=== PATIENT | male | born 1965 | race Caucasian/White ===

== ENCOUNTER 2017-09-14 17:00 | Emergency (ER) | payer SELFPAY ==
[2017-09-14 17:10] VITALS: BP 170/100
--- NOTE | 2017-09-14 17:27 | ER Document Report ---
ED Medical Screen (RME) - General Chief Complaint: Chest Congestion Stated Complaint: CONGESTION Time Seen by Provider: 09/14/17 17:15 Notes: This 52-year-old male patient with past history of ADHD on documented on prior visits comes emergency room with a long detailed history. He reports he has had chicken mite bites to his skin for over 2 years due to a neighbor that raises chickens. He tried a friend's scabies medication, and several treatments recommended over the Internet none of which worked. He reports buying a microscope over the Internet to look at these mites to identify them. 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 He states that he has found that most people have this problem become victims of conspiracies, 306's, and frequently get put on antipsychotic medications. 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 I have greeted and performed a rapid initial assessment of this patient. A comprehensive ED assessment and evaluation of the patient, analysis of test results and completion of the medical decision making process will be conducted by additional ED providers. TRAVEL OUTSIDE OF THE [place] IN LAST 30 DAYS: No - Related Data Allergies/Adverse Reactions: erythromycin base [Erythromycin Base] Allergy (Verified 09/14/17 17:02) VOMITING Past Medical History - Past Medical History Cardiac Medical History: Reports: Hx Hypertension Psychiatric Medical History: Reports: Hx Attention Deficit Hyperactivity Disorder Past Surgical History: Reports: Hx Herniorrhaphy, Hx Tonsillectomy - Immunizations Hx Diphtheria, Pertussis, Tetanus Vaccination: No Physical Exam - Vital signs Vitals: Temp Pulse Resp BP Pulse Ox 98.5 F 105 H 18 170/100 H 99 09/14/17 17:07 09/14/17 17:07 09/14/17 17:07 09/14/17 17:07 09/14/17 17:07 Course - Vital Signs Vital signs: Temp Pulse Resp BP Pulse Ox 98.5 F 105 H 18 170/100 H 99 09/14/17 17:07 09/14/17 17:07 09/14/17 17:07 09/14/17 17:07 09/14/17 17:07
== END 2017-09-14 18:35 | disposition left against medical advice (07) ==
LOC: ER 17:00
DX: Z53.9 Procedure and treatment not carried out, unspecified reason (principal); F90.9 Attention-deficit hyperactivity disorder, unspecified type; R09.89 Other specified symptoms and signs involving the circulatory and respiratory systems
CPT/HCPCS: 99281

== ENCOUNTER 2017-09-18 21:06 | Emergency (ER) | payer SELFPAY ==
--- NOTE | 2017-09-18 22:35 | ER Document Report ---
HPI - HPI Patient complains to provider of: Skin infection Pain Level: 5 Context: Patient is a 52-year-old male comes emergency department for chief complaint of an area on his right neck which is irritated, red, intermittently painful. He states it looks like a pustule, opened up, drained some, he said he was starting to improve but then he has been scratching at it and now will not go away. He denies that it is itchy. He denies any fever or chills. He denies injecting anything into the area. He denies diabetes. - CONSTITUTIONAL Constitutional: DENIES: Fever, Chills - EENT EENT: DENIES: Sore Throat, Ear Pain, Eye problems - NEURO Neurology: DENIES: Headache, Weakness, Vision blurred, Dizzinesss / Vertigo - CARDIOVASCULAR Cardiovascular: DENIES: Chest pain - RESPIRATORY Respiratory: DENIES: Coughing - GASTROINTESTINAL Gastrointestinal: DENIES: Abdominal Pain, Black / Bloody Stools - URINARY Urinary: DENIES: Dysuria, Urgency, Frequency - MUSCULOSKELETAL Musculoskeletal: DENIES: Extremity pain Past Medical History - General Information source: Patient - Social History Smoking Status: Current Every Day Smoker Frequency of alcohol use: None Drug Abuse: None Lives with: Family Family History: Reviewed & Not Pertinent Patient has suicidal ideation: No Patient has homicidal ideation: No - Past Medical History Cardiac Medical History: Reports: Hx Hypertension Renal/ Medical History: Denies: Hx Peritoneal Dialysis Psychiatric Medical History: Reports: Hx Attention Deficit Hyperactivity Disorder Past Surgical History: Reports: Hx Herniorrhaphy, Hx Tonsillectomy - Immunizations Hx Diphtheria, Pertussis, Tetanus Vaccination: No Vertical Provider Document - CONSTITUTIONAL General Appearance: WD/WN, No Apparent Distress - INFECTION CONTROL TRAVEL OUTSIDE OF THE [place] IN LAST 30 DAYS: No - HEENT HEENT: Atraumatic, Normal ENT Exam, Normocephalic - NECK Neck: Other - Small oval-shaped area of erythema with excoriations over the top on the right mid anterior/lateral neck, small area of avulsed skin over the top , no induration or fluctuance, no significant tenderness, minimal adjacent lymphadenopathy, no other abnormalities noted of the neck - RESPIRATORY Respiratory: Breath Sounds Normal, No Respiratory Distress O2 Sat by Pulse Oximetry: 97 - CARDIOVASCULAR Cardiovascular: Regular Rate, Regular Rhythm - GI/ABDOMEN Gastrointestinal: Abdomen Soft, Abdomen Non-Tender - NEURO Level of Consciousness: Awake, Alert - DERM Integumentary: Warm, Dry, No Rash Course - Re-evaluation Re-evalutation: There is a superficial opening of skin with mild surrounding erythema, no induration or fluctuance, no purulent drainage, mild nearby swelling of lymph nodes, no streaking away from the area. Appears to be mild cellulitis. No evidence of abscess or other abnormality on examination. Patient appears to be somewhat obsessive about the area, attempted to defensive line coach him into leaving the area alone after treating it. Discussed monitoring, treatment, follow-up, return precautions. Patient states understanding and agreement. - Vital Signs Vital signs: Temp Pulse Resp BP Pulse Ox 98.4 F 84 16 144/54 H 97 09/18/17 21:19 09/18/17 21:19 09/18/17 21:19 09/18/17 21:19 09/18/17 21:19 Discharge - Discharge Clinical Impression: Skin infection Condition: Stable Disposition: HOME, SELF-CARE Additional Instructions: Examination shows localized skin infection with nearby mildly swollen lymph nodes secondary to this. Clean gently with soap and water, keep clean dressing over the area, take prescribed Keflex. Follow-up with primary care. Return for any concerning symptoms including swelling of the area, spreading redness, fever, or any other concerning symptoms. Prescriptions: Cephalexin Monohydrate [Keflex 500 mg Capsule] 500 mg PO QID #28 capsule
[2017-09-18 22:44] VITALS: BP 140/60
== END 2017-09-18 22:40 | disposition home or self-care (01) ==
LOC: ER 21:06
DX: L08.9 Local infection of the skin and subcutaneous tissue, unspecified (principal); F17.200 Nicotine dependence, unspecified, uncomplicated
CPT/HCPCS: 99283

== ENCOUNTER 2017-11-19 23:40 | Emergency (ER) | payer SELFPAY ==
--- NOTE | 2017-11-20 01:15 | ER Document Report ---
ED Skin Rash/Insect Bite/Abscs - General Mode of Arrival: Ambulatory Information source: Patient TRAVEL OUTSIDE OF THE [place] IN LAST 30 DAYS: No - General Chief Complaint: Wound Infection Stated Complaint: FEELS BUGS ON SKIN Time Seen by Provider: 11/20/17 00:49 Notes: Patient is a 52-year-old male who presents to the emergency department today with complaints of "insects feeding on me" for the last two years. Patient has diffuse lesions with excoriations across his body. Patient is yellow in color however he states this is from the tumeric and tea tree oil he has been using on his body. Patient mentions that he has been seen here and at [facility] in the past and "no one can give him answers". Patient states he came in today because he injected hydrogen peroxide into one of these "burrows" prior to arrival and he wants to be sure he "will not " from that. Patient goes on to mention that since no one could give him answers he bought a "$700 microscope that can magnify [phone] and he hooks it up to his 80 inch [employer] TV" . Patient mentions that there are over 10,000 people in the [place] that are currently having this problem and he is in a Facebook group with those people. Patient also mentions that he translated [place] literature that mentioned a subdermal tick that causes these symptoms. Patient states he also has found similarities between the organisms burrowing in his skin to spirochetes when looking at them under the microscope. Patient states at times these "organisms jump off his skin simultaneously as if someone spat on them". Patient states he has not been able to work because of the fatigue these these organisms cause him. (MARIAM CARRIZALES) - Related Data Allergies/Adverse Reactions: erythromycin base [Erythromycin Base] Allergy (Verified 09/14/17 17:02) VOMITING Past Medical History - General Information source: Patient - Social History Smoking Status: Never Smoker Cigarette use (# per day): No Chew tobacco use (# tins/day): No Frequency of alcohol use: None Drug Abuse: Marijuana Lives with: Alone Family History: Reviewed & Not Pertinent Patient has suicidal ideation: No Patient has homicidal ideation: No - Past Medical History Cardiac Medical History: Reports: Hx Hypertension Psychiatric Medical History: Reports: Hx Attention Deficit Hyperactivity Disorder Past Surgical History: Reports: Hx Herniorrhaphy, Hx Tonsillectomy - Immunizations Hx Diphtheria, Pertussis, Tetanus Vaccination: No Review of Systems - Review of Systems Constitutional: Other - generalized fatigue. denies: Fever EENT: No symptoms reported Cardiovascular: No symptoms reported Respiratory: No symptoms reported Gastrointestinal: No symptoms reported Genitourinary: No symptoms reported Male Genitourinary: No symptoms reported Musculoskeletal: No symptoms reported Skin: See HPI, Other - lesions Hematologic/Lymphatic: No symptoms reported Neurological/Psychological: No symptoms reported -: Yes All other systems reviewed and negative Physical Exam - Vital signs Vitals: Temp Pulse Resp BP Pulse Ox 98.1 F 83 18 149/83 H 95 11/19/17 23:51 11/19/17 23:51 11/19/17 23:51 11/19/17 23:51 11/19/17 23:51 - Notes Notes: PHYSICAL EXAM GENERAL: Alert, interacts well until tactile hallucinations are mentioned then becomes defensive. No acute distress. HEAD: Normocephalic, atraumatic. EYES: Pupils equal, round, and reactive to light. Extraocular movements intact. ENT: Oral mucosa moist, tongue midline. NECK: Full range of motion. Supple. Trachea midline. LUNGS: No respiratory distress. ABDOMEN: Non-distended. EXTREMITIES: Moves all 4 extremities spontaneously. NEUROLOGICAL: Alert and oriented x3. Normal speech. PSYCH: Normal affect, normal mood. SKIN: Warm, dry, normal turgor. Yellow patches of skin consistent with history of applying tumeric, no evidence of jaundice as there are numerous patches of normal colored skin. Diffuse excoriations across arms most concentrated over forearms. Few lesions proximal to elbow, few lesions on ankles. No lesions on face or neck. No fluctuance, induration, or erythema. No sign of secondary bacterial infection. (MARIAM CARRIZALES) Course - Re-evaluation Re-evalutation: 11/20/17 01:18 No evidence of secondary bacterial infection, no evidence of any sort of infestation. No evidence of scabies, no lesions to the palms or soles. Discussed with patient that I truly think he is having tactile hallucinations, at this point the patient became quite defensive. I offered him symptomatic treatment in the form of Vistaril for the itching which he refused, states that he is planning things to take care of itching, states that he wants to have a 30 day prescription for erythromycin. I did discuss that I do not see any signs of bacterial infection, he states he does not think he has a bacterial infection either, he thinks that he has creatures that are burrowing under his skin and that those creatures take a dump in his skin which must have bacteria so he wants to prevent himself from getting a bacterial infection. I discussed with him the adverse effects that could come from a 30 day prescription for erythromycin, patient still disagrees with my treatment plan of not prescribing antibiotics. Discussed with him that if he would like to have a biopsy of 1 of the lesions he will need to see a pig breeder. Also discussed with him that if he squeezes out another one of these creatures as he says he has done he should put it in the specimen container that he will be provided with and bring it back to the hospital. I have written him an order slip to have this examined by pathology. If some form of infestation is found we will of course treat him with the appropriate anti-helminthics. Patient is not currently a danger to himself or other people, he actually only came in because he was afraid he may have harmed himself by injecting Hydrogen peroxide. While patient does appear to have persistent tactile hallucinations I do not see any evidence that he is going to harm himself, he is appropriately concerned by having injected hydrogen peroxide and noted that he would never try to inject it into a vein. Patient is encouraged to follow-up with dermatology as an outpatient for biopsy, also was encouraged to stay until the morning for evaluation by [facility] however he is refused this. Patient will be discharged home. (CLEMENTE MONIQUE) - Vital Signs Vital signs: Temp Pulse Resp BP Pulse Ox 98.9 F 91 16 156/85 H 98 11/20/17 01:43 11/20/17 01:43 11/20/17 01:43 11/20/17 01:43 11/20/17 01:43 Discharge - Discharge Clinical Impression: Tactile hallucination, Excoriation Hypertension Qualifiers: Hypertension type: essential hypertension Qualified Code(s): I10 - Essential ( primary) hypertension Condition: Stable Disposition: HOME, SELF-CARE Forms: Elevated Blood Pressure, Follow-Up Laboratory Testing Referrals: ADOLPH ANDERSON DO [ACTIVE STAFF] - Follow up in 1 week Scribe Attestation: 11/20/17 06:08 I personally performed the services described in the documentation, reviewed and edited the documentation which was dictated to the scribe in my presence, and it accurately records my words and actions. (CLEMENTE MONIQUE) Scribe Documentation - Scribe Written by Joseph:: Joseph Dietrich, 11/20/2017 0214 acting as scribe for :: Miley
[2017-11-20 01:44] VITALS: BP 156/85
== END 2017-11-20 01:44 | disposition home or self-care (01) ==
LOC: ER 23:40
DX: R44.2 Other hallucinations (principal); L98.1 Factitial dermatitis; I10 Essential (primary) hypertension; Z88.3 Allergy status to other anti-infective agents
CPT/HCPCS: 99283

== ENCOUNTER 2018-02-17 13:29 | Emergency (ER) | payer SELFPAY ==
--- NOTE | 2018-02-17 14:20 | ER Document Report ---
ED Medical Screen (RME) - General Chief Complaint: Psych Problem Stated Complaint: PSYCH EVAL Time Seen by Provider: 02/17/18 14:14 Mode of Arrival: Ambulatory Information source: Patient Notes: This is a 52-year-old male perseverating on the fact that he has a parasite infection. He adamantly denies any hallucinations, delusions suicidal ideations or homicidal ideations. He is alert and oriented 3. Patient has been seen in the past regarding skin lesions on the forearms and injecting himself with peroxide. Patient also reports fairly regular diarrhea. TRAVEL OUTSIDE OF THE [place] IN LAST 30 DAYS: No - HPI Onset: Other - 2 years Onset/Duration: Gradual Quality of pain: No pain Severity: None Pain Level: Denies Associated Symptoms: denies: Chest pain, Shortness of breath Exacerbated by: Denies Relieved by: Denies Similar symptoms previously: Yes Recently seen / treated by doctor: Yes - Related Data Smoking: Non-smoker Frequency of alcohol use: None Drug Abuse: None Allergies/Adverse Reactions: erythromycin base [Erythromycin Base] Allergy (Verified 02/17/18 13:31) VOMITING Past Medical History - General Information source: Patient - Social History Cigarette use (# per day): No Chew tobacco use (# tins/day): No Frequency of alcohol use: None Drug Abuse: Marijuana Lives with: Family Family history: None - Past Medical History Cardiac Medical History: Reports: Hx Hypertension Renal/ Medical History: Denies: Hx Peritoneal Dialysis Psychiatric Medical History: Reports: Hx Attention Deficit Hyperactivity Disorder Past Surgical History: Reports: Hx Herniorrhaphy, Hx Tonsillectomy - Immunizations Hx Diphtheria, Pertussis, Tetanus Vaccination: No Review of Systems - Review of Systems Constitutional: denies: Chills, Fever EENT: No symptoms reported Cardiovascular: No symptoms reported Respiratory: No symptoms reported Gastrointestinal: See HPI, Diarrhea Genitourinary: No symptoms reported Male Genitourinary: No symptoms reported Musculoskeletal: No symptoms reported Skin: See HPI Hematologic/Lymphatic: No symptoms reported Neurological/Psychological: No symptoms reported. denies: Hallucinations, Homicidal ideation, Suicidal ideation Physical Exam - Vital signs Vitals: Temp Pulse Resp BP Pulse Ox 98.4 F 96 16 158/95 H 98 02/17/18 13:36 02/17/18 13:36 02/17/18 13:36 02/17/18 13:36 02/17/18 13:36 Notes: Physical exam: GENERAL: 52-year-old man, alert and oriented 3, no acute distress. He is perseverating on the fact that he has a disseminated fluke disease and is requesting praziquantel HEAD: Atraumatic, normocephalic. EYES: Pupils equal round and reactive to light, extraocular movements intact, sclera anicteric, conjunctiva are normal. ENT: TMs normal, nares patent, oropharynx clear without exudates. Moist mucous membranes. NECK: Normal range of motion, supple without obvious mass or JVD. LUNGS: Breath sounds clear to auscultation bilaterally and equal. No wheezes rales or rhonchi. HEART: Regular rate and rhythm without murmurs, rubs or gallops. ABDOMEN: Soft, normoactive bowel sounds. No tenderness to palpation. No guarding, no rebound. No masses appreciated. EXTREMITIES: Normal range of motion, no pitting or edema. No clubbing or cyanosis. NEUROLOGICAL: Cranial nerves II through XII grossly intact. Normal speech, moving all extremities. PSYCH: Normal mood, normal affect. He is conversant and appears well educated regarding disseminated fluid disease. He is not having any hallucinations. He did exhibits no aggressiveness. He is calm and ambulating. SKIN: Warm, Dry, normal turgor, no rashes or lesions noted. Course - Re-evaluation Re-evalutation: 02/17/18 14:30 I have had a long discussion with the patient in triage. I have asked if he could give me a stool sample so that we can check for ova and parasites in the stool (he states he has been having regular diarrhea). He is unable to give a sample. He would prefer that I just give him a prescription for praziquantel but I have informed him that I cannot do that without a diagnosis. I have advised he follow-up with an infectious disease doctor and I have given him contacts for 2 clinics. Otherwise, patient appears in good health at this time and can follow-up in an outpatient clinic. In addition to the 2 ID clinics provided, I have given him the number for the [facility] clinic affiliated with this [facility]. - Vital Signs Vital signs: Temp Pulse Resp BP Pulse Ox 98.4 F 96 16 158/95 H 98 02/17/18 13:36 02/17/18 13:36 02/17/18 13:36 02/17/18 13:36 02/17/18 13:36 Doctor's Discharge - Discharge Clinical Impression: Diarrhea, Rash Condition: Stable Disposition: HOME, SELF-CARE Additional Instructions: As we discussed, to make the diagnosis of left lukewarm infection, we would require stool to send off for study here at the hospital. Ultimately however I recommend you follow-up at the ID clinic. There is an ID clinic in [place]: [facility] [address] [place] [address] [phone] There is an ID clinic in [facility]: [facility] [address] [place] [address] Also, recommended following up with a primary care doctor: There is a free clinic affiliated with this hospital below follow-up at the [facility] which is a free clinic. [address], [place] [address]
[2018-02-17 14:39] VITALS: BP 153/100
== END 2018-02-17 14:31 | disposition home or self-care (01) ==
LOC: ER 13:29
DX: L98.9 Disorder of the skin and subcutaneous tissue, unspecified (principal); R19.7 Diarrhea, unspecified; I10 Essential (primary) hypertension
CPT/HCPCS: 99283

== ENCOUNTER 2018-02-27 13:40 | Emergency (ER) | payer SELFPAY ==
--- NOTE | 2018-02-27 14:58 | ER Document Report ---
ED Medical Screen (RME) - General Chief Complaint: Chest Pain Stated Complaint: CHEST PAIN Time Seen by Provider: 02/27/18 14:35 Notes: 52 years old male presents today with multiple medical complain, spent time with him for about 5 minutes or more. Some of it cannot be described. He states that he believes he has schistosomiasis. Having abdominal pain chest pain general malaise and skin lesions. I have greeted and performed a rapid initial assessment of this patient. A comprehensive ED assessment and evaluation of the patient, analysis of test results and completion of the medical decision making process will be conducted by additional ED providers. TRAVEL OUTSIDE OF THE [place] IN LAST 30 DAYS: No - Related Data Allergies/Adverse Reactions: No Known Allergies Allergy (Verified 02/27/18 14:34) Past Medical History - Social History Chew tobacco use (# tins/day): No Frequency of alcohol use: None Drug Abuse: None Family history: None - Past Medical History Cardiac Medical History: Reports: Hx Hypertension Renal/ Medical History: Denies: Hx Peritoneal Dialysis Psychiatric Medical History: Reports: Hx Attention Deficit Hyperactivity Disorder Past Surgical History: Reports: Hx Herniorrhaphy, Hx Tonsillectomy - Immunizations Hx Diphtheria, Pertussis, Tetanus Vaccination: No Physical Exam - Vital signs Vitals: Temp Pulse Resp BP Pulse Ox 97.9 F 103 H 16 136/87 H 98 02/27/18 14:04 02/27/18 14:04 02/27/18 14:04 02/27/18 14:04 02/27/18 14:04 Course - Vital Signs Vital signs: Temp Pulse Resp BP Pulse Ox 97.9 F 103 H 16 136/87 H 98 02/27/18 14:04 02/27/18 14:04 02/27/18 14:04 02/27/18 14:04 02/27/18 14:04
--- NOTE | 2018-02-27 15:52 | ER Document Report ---
ED General - General Chief Complaint: Chest Pain Stated Complaint: CHEST PAIN Time Seen by Provider: 02/27/18 14:35 Mode of Arrival: Ambulatory Information source: Patient Notes: 52 yo male non smoier, came to the ER c/o severe left sided chest pain that shoots into left neck and left arm. Started on Sunday evening while laying down , sharp and dull, worse with movement, dull constant. No Known CAD. Occ. marijuana, no known hyperlipedemia or HTN (recent 220/120 sunday) . FHx: grandparents of [place]. Pain in right lower quadrant pain, intermittent for 3 years, constant for 3-4 months. Scared because "I am losing consciousness, eyesight got blurry, took 1/2 his lisinopril 20mg 3 hours ago thinking his BP was up. Also feels lightheaded and urinary hesitancy and diarrhea for several months. No psych meds. He asked for his mom to be in the room. I spoke with her prior to her getting into room and she states he is obsessed with bugs/ worms and self diagnosing since october- sleeping in the car on a single bed mattress to get away the bugs. Yesterday he had a hard stool and sealed it in a container. TRAVEL OUTSIDE OF THE [place] IN LAST 30 DAYS: No - Related Data Allergies/Adverse Reactions: No Known Allergies Allergy (Verified 02/27/18 14:34) Past Medical History - General Information source: Patient - Social History Smoking Status: Never Smoker Chew tobacco use (# tins/day): No Frequency of alcohol use: Occasional Drug Abuse: Marijuana Occupation: Unemployed Lives with: Parents - Mother Family History: Reviewed & Not Pertinent Patient has suicidal ideation: No Patient has homicidal ideation: No - Past Medical History Cardiac Medical History: Reports: Hx Hypertension - New diagnosis of the [facility] he cannot afford the antihypertens Renal/ Medical History: Denies: Hx Peritoneal Dialysis Psychiatric Medical History: Reports: Hx Attention Deficit Hyperactivity Disorder Past Surgical History: Reports: Hx Herniorrhaphy, Hx Tonsillectomy - Immunizations Hx Diphtheria, Pertussis, Tetanus Vaccination: No Review of Systems - Review of Systems Constitutional: See HPI EENT: No symptoms reported Cardiovascular: See HPI Respiratory: No symptoms reported Gastrointestinal: See HPI Genitourinary: No symptoms reported Male Genitourinary: No symptoms reported Musculoskeletal: No symptoms reported Skin: No symptoms reported Hematologic/Lymphatic: No symptoms reported Neurological/Psychological: No symptoms reported Physical Exam - Vital signs Vitals: Temp Pulse Resp BP Pulse Ox 97.9 F 103 H 16 136/87 H 98 02/27/18 14:04 02/27/18 14:04 02/27/18 14:04 02/27/18 14:04 02/27/18 14:04 Interpretation: Normal - General General appearance: Appears well, Alert - HEENT Head: Normocephalic, Atraumatic Eyes: Normal Pupils: PERRL - Respiratory Respiratory status: No respiratory distress Chest status: Nontender Breath sounds: Normal Chest palpation: Normal - Cardiovascular Rhythm: Regular Heart sounds: Normal auscultation Murmur: No - Abdominal Inspection: Normal Distension: No distension Bowel sounds: Normal Tenderness: Nontender Organomegaly: No organomegaly - Back Back: Normal, Nontender - Extremities General upper extremity: Normal inspection, Nontender, Normal color, Normal ROM , Normal temperature General lower extremity: Normal inspection, Nontender, Normal color, Normal ROM , Normal temperature, Normal weight bearing. No: Anamaria's sign - Neurological Neuro grossly intact: Yes Cognition: Normal Orientation: AAOx4 [place] Coma Scale Eye Opening: Spontaneous Alan Coma Scale Verbal: Oriented Alan Coma Scale Motor: Obeys Commands [place] Coma Scale Total: 15 Speech: Normal Motor strength normal: LUE, RUE, LLE, RLE Sensory: Normal - Psychological Associated symptoms: Normal affect, Normal mood Notes: continuously looking up things on his phone re: tx, self diagnosing during history and exam. - Skin Skin Temperature: Warm Skin Moisture: Dry Skin Color: Normal Course - Re-evaluation Re-evalutation: 02/27/18 17:40 Patient refuses an IV and blood draw to this point he states giving him normal saline is not a good idea as he showed me symptoms that he has and that sodium should not be given to someone with high blood pressure (I told him I did not order any sodium IV) I explained to him that his blood pressure is okay here but I said he can drink water and then get the urinalysis. I does agree to a blood draw at this time. 02/27/18 17:44 CT of the head, acute abdomen and chest x-ray are negative. 02/27/18 18:59 pt just voided. 02/27/18 19:[address] Loza the patient will be discharged as a troponin is negative and the chest pain started on Sunday. - Vital Signs Vital signs: Temp Pulse Resp BP Pulse Ox 97.9 F 103 H 16 136/87 H 98 02/27/18 14:04 02/27/18 14:04 02/27/18 14:04 02/27/18 14:04 02/27/18 14:04 - Laboratory Result Diagrams: 02/27/18 18:05 02/27/18 18:05 Laboratory results interpreted by me: 02/27/18 18:05 Glucose 111 H Creatine Kinase 37 L Discharge - Discharge Clinical Impression: Chronic abdominal pain, obscession with health/fear of bugs Chest pain Qualifiers: Chest pain type: unspecified Qualified Code(s): R07.9 - Chest pain, unspecified Condition: Good Disposition: HOME, SELF-CARE Instructions: Chest Pain of Unclear Cause ([facility]), Abdominal Pain ([facility]), Obsessive-Compulsive Disorder ([facility]), Family Physicians / Practices, Aspirin ( Cardiac) ([facility]) Additional Instructions: See outpatient psychiatric clinic for your obsession about your health and bugs See a family practice doctor for your care copy of all work up done given to you Return to the emergency room for worsening symptoms take 81mg aspirin daily
[2018-02-27] MEDS ORDERED: ASPIRIN 81 MG TABLET, CHEWABLE PO ONE (16:05)
--- NOTE | 2018-02-27 16:44 | RADIOLOGY REPORT (SQ) ---
EXAM DESCRIPTION: CHEST 2 VIEWS COMPLETED DATE/TIME: 02/27/2018 4:35 pm REASON FOR STUDY: chst pain COMPARISON: None. EXAM PARAMETERS: NUMBER OF VIEWS: two views TECHNIQUE: Digital Frontal and Lateral radiographic views of the chest acquired. RADIATION DOSE: NA LIMITATIONS: none FINDINGS: LUNGS AND PLEURA: No opacities, masses or pneumothorax. No pleural effusion. MEDIASTINUM AND HILAR STRUCTURES: No masses or contour abnormalities. HEART AND VASCULAR STRUCTURES: Heart normal size. No evidence for failure. BONES: No acute findings. HARDWARE: None in the chest. OTHER: No other significant finding. IMPRESSION: NO ACUTE RADIOGRAPHIC FINDING IN THE CHEST. TECHNICAL DOCUMENTATION: JOB ID: [id number] [employer]- All Rights Reserved Reading location - IP/workstation name: [email or web address]
--- NOTE | 2018-02-27 17:07 | RADIOLOGY REPORT (SQ) ---
EXAM DESCRIPTION: ABDOMEN 2 VIEWS COMPLETED DATE/TIME: 02/27/2018 4:58 pm REASON FOR STUDY: bd pain COMPARISON: None. NUMBER OF VIEWS: Two views. TECHNIQUE: Supine and erect radiographic images of the abdomen acquired. LIMITATIONS: None. FINDINGS: FREE AIR: None. No abnormal gas collections. LUNG BASES: Clear. BOWEL GAS PATTERN: Nonobstructive pattern. No dilated loops or air fluid levels. CALCIFICATIONS: No suspicious calcifications. SOFT TISSUES: No gross mass or suggestion of organomegaly. HARDWARE: None in the abdomen. BONES: No acute fracture. No worrisome bone lesions. OTHER: No other significant finding. IMPRESSION: NO RADIOGRAPHIC EVIDENCE FOR ACUTE ABDOMINAL DISEASE. TECHNICAL DOCUMENTATION: JOB ID: [id number] [email or web address]- All Rights Reserved Reading location - IP/workstation name: [email or web address]
--- NOTE | 2018-02-27 17:16 | RADIOLOGY REPORT (SQ) ---
EXAM DESCRIPTION: CT HEAD WITHOUT COMPLETED DATE/TIME: 02/27/2018 5:05 pm REASON FOR STUDY: hallucinations COMPARISON: None. TECHNIQUE: Axial images acquired through the brain without intravenous contrast. Images reviewed wi th bone, brain and subdural windows. Additional sagittal and coronal reconstructions were generated. Images stored on PACS. All CT scanners at this facility use dose modulation, iterative reconstruction, and/or weight based d osing when appropriate to reduce radiation dose to as low as reasonably achievable (ALARA). [facility]: Dose Right [facility]: CareDose [facility]: Dose Right [facility]: Teradose 4D [facility]: McPhy RADIATION DOSE: CT Rad equipment meets quality standard of care and radiation dose reduction techniq ues were employed. CTDIvol: 53.2 mGy. DLP: 991 mGy-cm. mGy. LIMITATIONS: None. FINDINGS: VENTRICLES: Normal size and contour. CEREBRUM: No masses. No hemorrhage. No midline shift. No evidence for acute infarction. Normal gra y/white matter differentiation. No areas of low density in the white matter. CEREBELLUM: No masses. No hemorrhage. No alteration of density. No evidence for acute infarction. EXTRAAXIAL SPACES: No fluid collections. No masses. ORBITS AND GLOBE: No intra- or extraconal masses. Normal contour of globe without masses. CALVARIUM: No fracture. PARANASAL SINUSES: Mucosal thickening is identified in several of the ethmoid air cells. SOFT TISSUES: No mass or hematoma. OTHER: No other significant finding. IMPRESSION: NORMAL BRAIN CT WITHOUT CONTRAST. EVIDENCE OF ACUTE STROKE: NO. COMMENT: Quality ID # [id number]: Final reports with documentation of one or more dose reduction techniques (e.g., Automated exposure control, adjustment of the mA and/or kV according to patient size, use of iterative reconstruction technique) TECHNICAL DOCUMENTATION: JOB ID: [id number] [employer]- All Rights Reserved Reading location - IP/workstation name: [email or web address]
[2018-02-27 18:18] LABS: ABSOLUTE LYMPHOCYTES (AUTO) 1.3 10^3/uL (0.5-4.7); ABSOLUTE MONOCYTES (AUTO) 0.6 10^3/uL (0.1-1.4); ABSOLUTE NEUT (AUTO) 4.4 10^3/uL (1.7-8.2); BASOPHILS % (AUTO) 0.7 % (0-2); EOSINOPHILS % (AUTO) 0.1 % (0-6); HEMATOCRIT 45.4 % (37.9-51.0); HEMOGLOBIN 15.5 g/dL (13.5-17.0); LYMPHOCYTES % (AUTO) 20.1 % (13-45); MEAN CORPUSCULAR HEMOGLOBIN 29.9 pg (27.0-33.4); MEAN CORPUSCULAR HGB CONC 34.1 g/dL (32.0-36.0); MEAN CORPUSCULAR VOLUME 88 fl (80-97); MONOCYTES % (AUTO) 9.6 % (3-13); PLATELET COUNT 280 10^3/uL (150-450); RED BLOOD COUNT 5.18 10^6/uL (4.35-5.55); SEGMENTED NEUTROPHILS % (AUTO) 69.5 % (42-78); TOTAL CELLS COUNTED % (AUTO) 100 %; WHITE BLOOD COUNT 6.3 10^3/uL (4.0-10.5)
[2018-02-27 18:37] LABS: ALANINE AMINOTRANSFERASE 35 U/L (21-72); ALBUMIN 4.7 g/dL (3.5-5.0); ALKALINE PHOSPHATASE 62 U/L (38-126); ANION GAP 15 (5-19); ASPARTATE AMINO TRANSFERASE 19 U/L (17-59); BILIRUBIN,DIRECT 0.3 mg/dL (0.0-0.4); BILIRUBIN,TOTAL 0.4 mg/dL (0.2-1.3); BLOOD UREA NITROGEN 8 mg/dL (7-20); CALCIUM 10.1 mg/dL (8.4-10.2); CARBON DIOXIDE 27 mmol/L (22-30); CHLORIDE 102 mmol/L (98-107); CREATINE KINASE 37 U/L (55-170); GLUCOSE 111 mg/dL (75-110); POTASSIUM 4.5 mmol/L (3.6-5.0); TOTAL PROTEIN 8.1 g/dL (6.3-8.2)
[2018-02-27 18:40] LABS: CREATINE KINASE MB 0.56 ng/mL (<4.55); TROPONIN I < 0.012 ng/mL
[2018-02-27 19:05] VITALS: BP 136/91
[2018-02-27 19:16] LABS: APPEARANCE,URINE CLEAR; BILIRUBIN,URINE NEGATIVE (NEGATIVE); COLOR,URINE YELLOW; GLUCOSE, URINE NEGATIVE (NEGATIVE); KETONES,URINE TRACE mg/dL (NEGATIVE); LEUKOCYTE ESTERASE,URINE NEGATIVE (NEGATIVE); NITRITE,URINE NEGATIVE (NEGATIVE); PROTEIN,URINE NEGATIVE (NEGATIVE); URINE SPECIFIC GRAVITY 1.009; UROBILINOGEN,URINE NEGATIVE mg/dL (<2.0)
[2018-02-27 19:28] LABS: URINE AMPHETAMINES SCREEN UNCONFIRMED POSITIVE; URINE BARBITURATES SCREEN NEGATIVE; URINE BENZODIAZEPINES SCREEN UNCONFIRMED POSITIVE; URINE COCAINE SCREEN NEGATIVE; URINE MARIJUANA (THC) SCREEN UNCONFIRMED POSITIVE; URINE METHADONE SCREEN NEGATIVE; URINE PHENCYCLIDINE SCREEN NEGATIVE
--- NOTE | 2018-02-27 23:17 | EKG REPORT ---
SEVERITY:- ABNORMAL ECG - SINUS TACHYCARDIA PROBABLE LEFT ATRIAL ABNORMALITY LEFT ANTERIOR FASCICULAR BLOCK PROBABLE POSTERIOR INFARCT : Confirmed by: Sharla Toussaint 27-Feb-2018 23:17:00
== END 2018-02-27 19:45 | disposition home or self-care (01) ==
LOC: ER 13:40
DX: R07.9 Chest pain, unspecified (principal); G89.29 Other chronic pain; R10.9 Unspecified abdominal pain; F42.8 Other obsessive-compulsive disorder
CPT/HCPCS: 36415; 70450; 71046; 74019; 80053; 80307; 81001; 82550; 82553; 84484; 85025; 93005; 93010; 99285

== ENCOUNTER 2018-06-29 08:26 | Emergency (ER) | payer SELFPAY ==
--- NOTE | 2018-06-29 08:49 | ER Document Report ---
ED Psych Disorder / Suicide <EJ BETANCOURT - Last Filed: 06/29/18 16:08> - General TRAVEL OUTSIDE OF THE [place] IN LAST 30 DAYS: No <FABIAN MANN - Last Filed: 06/29/18 17:48> - General Chief Complaint: Psych Problem Stated Complaint: IVC Time Seen by Provider: 06/29/18 08:39 Notes: Patient is a 53-year-old male, past medical history polysubstance abuse, delusional parasitosis, presents on an IVC after his mom found him picking worms out of his nose using a knife. She believes he is a danger to himself. When asked if patient would ever kill himself, he replies, "I believe in the Lord Amado Rolando. The worst sin is to kill myself and then I will be condemned to hell. Hell is a horrible place." Patient denies fevers, homicidal ideation or any other complaints. (FABIAN MANN) - Related Data Allergies/Adverse Reactions: sulfamethoxazole [From Bactrim] Allergy (Verified 06/29/18 09:08) trimethoprim [From Bactrim] Allergy (Verified 06/29/18 09:08) Past Medical History - General Information source: Patient, Transfer Record - Social History Smoking Status: Unknown if Ever Smoked Drug Abuse: Marijuana, Methamphetamine Family History: Reviewed & Not Pertinent - Past Medical History Cardiac Medical History: Reports: Hx Hypertension - New diagnosis of the [facility] he cannot afford the antihypertens Renal/ Medical History: Denies: Hx Peritoneal Dialysis Psychiatric Medical History: Reports: Hx Attention Deficit Hyperactivity Disorder Past Surgical History: Reports: Hx Herniorrhaphy, Hx Tonsillectomy - Immunizations Hx Diphtheria, Pertussis, Tetanus Vaccination: No <FABIAN MANN - Last Filed: 06/29/18 17:48> Review of Systems <EJ BETANCOURT - Last Filed: 06/29/18 16:08> <FABIAN MANN - Last Filed: 06/29/18 17:48> - Review of Systems Notes: REVIEW OF SYSTEMS: CONSTITUTIONAL: -fevers, -chills EENT: -eye pain, -difficulty swallowing, -nasal congestion CARDIOVASCULAR: -chest pain, -syncope. RESPIRATORY: -cough, -SOB GASTROINTESTINAL: -abdominal pain, -nausea, -vomiting, -diarrhea GENITOURINARY: -dysuria, -hematuria MUSCULOSKELETAL: -back pain, -neck pain SKIN: +chronic skin lesions HEMATOLOGIC: -easy bruising or bleeding. LYMPHATIC: -swollen, enlarged glands. NEUROLOGICAL: -altered mental status or loss of consciousness, -headache, - neurologic symptoms PSYCHIATRIC: -anxiety, -depression. ALL OTHER SYSTEMS REVIEWED AND NEGATIVE. (FABIAN MANN) Physical Exam <EJ BETANCOURT - Last Filed: 06/29/18 16:08> <FABIAN MANN - Last Filed: 06/29/18 17:48> - Vital signs Vitals: Temp Pulse Resp BP Pulse Ox 97.4 F 98 20 148/99 H 93 06/29/18 09:00 06/29/18 09:00 06/29/18 09:00 06/29/18 09:00 06/29/18 09:00 - Notes Notes: PHYSICAL EXAMINATION: GENERAL: Well-appearing, well-nourished and in no acute distress. HEAD: Atraumatic, normocephalic. EYES: Pupils equal round and reactive to light, extraocular movements intact, sclera anicteric, conjunctiva are normal. ENT: nares patent without active bleeding, oropharynx clear without exudates. Moist mucous membranes. NECK: Normal range of motion, supple without lymphadenopathy LUNGS: Breath sounds clear to auscultation bilaterally and equal. No wheezes rales or rhonchi. HEART: Regular rate and rhythm without murmurs ABDOMEN: Soft, nontender, normoactive bowel sounds. No guarding, no rebound. No masses appreciated. EXTREMITIES: Normal range of motion, no pitting or edema. No cyanosis. NEUROLOGICAL: Cranial nerves grossly intact. Normal speech, normal gait. Normal sensory and motor exams. PSYCH: Bizarre affect. Denies SI or HI. SKIN: Multiple crusted over skin brumfield. (FABIAN MANN) Course - Laboratory Result Diagrams: 06/29/18 08:50 06/29/18 08:50 <EJ BETANCOURT - Last Filed: 06/29/18 16:08> - Laboratory Result Diagrams: 06/29/18 08:50 06/29/18 08:50 <FABIAN MANN - Last Filed: 06/29/18 17:48> - Re-evaluation Re-evalutation: Patient initially had slight tachycardia and leukocytosis, but normal blood pressure and lactate. He is not septic. Cleared for evaluation by mental health. 06/29/18 17:40 Mental Health saw patient. Patient does not meet IVC criteria and the IVC was rescinded. Patient states that he does not ever want to hurt himself. 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 Provided him with outpatient resources. (FABIAN MANN) - Vital Signs Vital signs: Temp Pulse Resp BP Pulse Ox 97.4 F 98 20 148/99 H 93 06/29/18 09:00 06/29/18 09:00 06/29/18 09:00 06/29/18 09:00 06/29/18 09:00 - Laboratory Laboratory results interpreted by mo: 06/29/18 06/29/18 08:50 08:50 WBC 14.2 H Hgb 13.0 L RDW 14.5 H Absolute Neutrophils 9.6 H Glucose 171 H Salicylates < 1.0 L Acetaminophen < 10 L Discharge <EJ BETANCOURT - Last Filed: 06/29/18 16:08> <FABIAN MANN - Last Filed: 06/29/18 17:48> - Discharge Clinical Impression: Self-harming behavior, Ekbom's delusional parasitosis Disposition: HOME, SELF-CARE Additional Instructions: You were seen in the ED and evaluated by the Medical and Behavioral Health teams for suicidal ideation/homicidal ideation and determined to be appropriate for discharge at this time. You were given a list of resources to assist you upon discharge to include [facility]. No medication recommendations at this time. SUICIDAL IDEATION: Suicidal ideation is a common medical term for thoughts about suicide, which may be as detailed as a formulated plan, without the suicidal act itself. Although most people who undergo suicidal ideation do not commit suicide, some go on to make suicide attempts. The range of suicidal ideation varies greatly from fleeting to detailed planning, role playing, and unsuccessful attempts. While thoughts about suicide are common, most people do not carry out serious actions to commit suicide. Based upon your evaluation and discussion with you, we do not believe you are currently at risk to act upon your thoughts of suicide. You have agreed to return to the Emergency Department, at any time , if you feel inclined to act upon your suicidal thoughts. FOLLOW-UP CARE: If you have been referred to a physician for follow-up care, call the physician s office for an appointment as you were instructed or within the next two days. If you experience worsening or a significant change in your symptoms, notify the physician immediately or return to the Emergency Department at any time for re-evaluation. Forms: Elevated Blood Pressure Referrals: [facility] [Outside] - Follow up as needed
[2018-06-29 09:24] LABS: ABSOLUTE EOSINOPHILS # (AUTO) 0.1 10^3/uL (0.0-0.6); ABSOLUTE LYMPHOCYTES (AUTO) 3.5 10^3/uL (0.5-4.7); ABSOLUTE NEUT (AUTO) 9.6 10^3/uL (1.7-8.2); BASOPHILS % (AUTO) 0.3 % (0-2); EOSINOPHILS % (AUTO) 0.7 % (0-6); HEMATOCRIT 38.9 % (37.9-51.0); LYMPHOCYTES % (AUTO) 24.6 % (13-45); MEAN CORPUSCULAR HEMOGLOBIN 28.3 pg (27.0-33.4); MEAN CORPUSCULAR HGB CONC 33.3 g/dL (32.0-36.0); MEAN CORPUSCULAR VOLUME 85 fl (80-97); MONOCYTES % (AUTO) 7.1 % (3-13); PLATELET COUNT 398 10^3/uL (150-450); RED BLOOD COUNT 4.57 10^6/uL (4.35-5.55); RED CELL DISTRIBUTION WIDTH 14.5 % (11.5-14.0); SEGMENTED NEUTROPHILS % (AUTO) 67.3 % (42-78); TOTAL CELLS COUNTED % (AUTO) 100 %; WHITE BLOOD COUNT 14.2 10^3/uL (4.0-10.5)
[2018-06-29 09:40] LABS: ALANINE AMINOTRANSFERASE 37 U/L (21-72); ALBUMIN 4.3 g/dL (3.5-5.0); ALKALINE PHOSPHATASE 60 U/L (38-126); ANION GAP 12 (5-19); ASPARTATE AMINO TRANSFERASE 33 U/L (17-59); BILIRUBIN,DIRECT 0.3 mg/dL (0.0-0.4); BILIRUBIN,TOTAL 0.6 mg/dL (0.2-1.3); BLOOD UREA NITROGEN 12 mg/dL (7-20); CALCIUM 10.1 mg/dL (8.4-10.2); CARBON DIOXIDE 26 mmol/L (22-30); CHLORIDE 103 mmol/L (98-107); GLUCOSE 171 mg/dL (75-110); SODIUM 141.1 mmol/L (137-145); TOTAL PROTEIN 7.8 g/dL (6.3-8.2)
[2018-06-29 09:43] LABS: ACETAMINOPHEN < 10 ug/mL (10-30); ALCOHOL < 10 mg/dL (NONE DETECTED); SALICYLATE < 1.0 mg/dL (2.0-20.0)
[2018-06-29 10:52] LABS: VENOUS BLOOD HCO3 24.4 mmol/L (20-32); VENOUS BLOOD PCO2 43.4 mmHg (35-63); VENOUS BLOOD PH 7.37 (7.30-7.42)
[2018-06-29 17:52] VITALS: BP 134/80
--- NOTE | 2018-06-29 18:34 | PSYCHOLOGICAL NOTE ---
Psych Note - Psych Note Psych Note: Reason for consultation: picking worms out of his nose using a knife Pt to Ed via [facility] on IVC papers, pt reports he is here because he mothers wants her house "all to herself", pt denies Si/HI, states he would never attempt suicide as it is the one non-forgivable sin. IVC papers states pt was digging in skin and nose with knife trying to remove bugs. Pt is calm and cooperative at this time. Patient states that he was trying to pull black mole spurs out of his nose and was not trying to kill himself. Patient states that he regularly cleans his fingernails, toenails, etc with his pocket knife. Patient reports that Mom has 25 cats in the home that he shares with her and is afraid that they may have to move because of the mold that "may" be growing in the house. Patient states that Mom will not let him call the [facility] because they may determine that mold is in the house and that they would have to move. Patient is alert and oriented to person, place, time and circumstance. Mood is euthymic with congruent affect. Patient denies suicidal ideation. Patient denies homicidal ideation. This Clinician left messages for Mom to clarify any delusions surrounding the issue of the cats in the home but calls were not returned. Conversational speech was normal rate, tone and prosody. Intellectual ability appears to be within average range. Attention and concentration are good. Insight, judgment, impulse control are good. Patient states that he is not interested in any medication but prefers to use prayer and meditation for therapy. This Clinician provided the patient with a list of outpatient providers to assist him upon discharge. No medication recommendations at this time Diagnosis 295.90 (F20.9) Schizophrenia Impression/Plan: Patient is recommended to rescind of IVC and is cleared from psychiatric services. Patient does not meet IVC criteria per [place] GS 122C. Patient denies suicide ideation. Patient denies homicidal ideation. Patient says that he routinely uses his pocket knife to clean his fingernails, etc and has never attempted to kill himself. Patient was calm, cooperative and forthcoming with information. Dr. Huitron was consulted in the care and management of this patient; attending physicians in agreement with recommendations and disposition.
--- NOTE | 2018-06-30 16:58 | EKG REPORT ---
SEVERITY:- ABNORMAL ECG - SINUS TACHYCARDIA VENTRICULAR PREMATURE COMPLEX PROBABLE LEFT ATRIAL ABNORMALITY LEFT ANTERIOR FASCICULAR BLOCK BORDERLINE PROLONGED QT INTERVAL : Confirmed by: Deepika Whitmore MD 30-Jun-2018 16:57:48
== END 2018-06-29 17:50 | disposition home or self-care (01) ==
LOC: ER 08:26
DX: F22 Delusional disorders (principal); F15.10 Other stimulant abuse, uncomplicated; F12.10 Cannabis abuse, uncomplicated; R00.0 Tachycardia, unspecified; D72.829 Elevated white blood cell count, unspecified; I10 Essential (primary) hypertension; Z88.1 Allergy status to other antibiotic agents
CPT/HCPCS: 36415; 80053; 80307; 82803; 83605; 85025; 93005; 93010; 99285